=== PATIENT | male | born 1985 | race Caucasian/White ===

== ENCOUNTER 2020-08-03 07:09 | Emergency (ER) | payer BC, SELFPAY ==
--- NOTE | ~2020-08-03 | CT_ITS ---
EXAMINATION: CT abdomen pelvis wo con DATE: 08/03/2020 08:07 INDICATION: Right flank pain. TECHNIQUE: Computed tomography (CT) of the abdomen and pelvis was performed without intravenous contr ast. Automated exposure control and iterative reconstruction technique were employed. The dose-length product was 1310.89 mGy-cm. COMPARISON: None. FINDINGS: The visualized portions of the lung bases demonstrate mild atelectasis. No pleural effusion . The heart size is normal. No pericardial effusion. The liver, gallbladder, spleen, pancreas, adrena l glands, and left kidney are normal. There is a 5 mm hemorrhagic cyst in right kidney. There is mild asymmetric fat stranding in the right retroperitoneum, consistent with edema versus inflammation. Th ere is no urolithiasis. There is a left inguinal hernia containing fat. There are no dilated loops of bowel. The appendix is normal. There are no pathologically enlarged lymph nodes. There is no free in traperitoneal fluid. There is mild thoracolumbar spondylosis. IMPRESSION: 1. No urolithiasis. 2. Mild edema versus inflammation in the right retroperitoneum. 3. Left inguinal hernia containing fat. Reviewed, dictated and finalized at location [facility]
[2020-08-03 07:33] LABS: Basophils Percent Auto 0.5 % (0.2-1.2); Eosinophils Absolute Auto 0.1 K/mm3 (0-0.3); Eosinophils Percent Auto 1.1 % (0-4.4); Hematocrit 44.8 % (42.0-52.0); Hemoglobin 15.7 g/dL (14.0-18.0); Immature Granulocyte Absolute 0.01 K/mm3 (0.00-0.031); Immature Granulocyte Percent A 0.1 % (0-0.5); Lymphocytes Absolute Auto 4.16 K/mm3 (0.9-3.2); Lymphocytes Percent Auto 55.7 % (18.3-44.2); Mean Corpuscular Hemoglobin 30.2 pg (26-34); Mean Corpuscular Volume 86.2 fl (80-100); Monocytes Absolute Auto 0.6 K/mm3 (0.1-0.6); Monocytes Percent Auto 8.4 % (2.6-8.5); Neutrophils Absolute Auto 2.6 K/mm3 (1.3-6.7); Neutrophils Percent Auto 34.2 % (45.5-73.1); Platelet Count Result 192 k/mm3 (150-375); Red Cell Distribution Width 11.3 % (11.5-14.5); White Blood Count 7.5 K/mm3 (4.5-10.0)
[2020-08-03 07:34] VITALS: BP 159/87; PULSE 77; RESP 18; TEMP 35.7; O2SAT 100
[2020-08-03 07:39] LABS: Add Urine Microscopic? YES; Appearance Urine Clear (Clear); Bilirubin Urine Negative (Negative); Blood Urine 2+ (Negative); Color Urine Yellow (Yellow); Glucose Urine UA Negative (Negative); Ketones Urine Negative (Negative); Leukocyte Esterase Ur Negative LEU/UL (Negative); Mucus Urine Few /lpf; Nitrate Urine Negative (Negative); Protein Urine Negative (Negative); Squamous Epithelial Cell Urine Rare /hpf (Few); Urobilinogen Urine Negative mg/dL (<2.0); WBC Urine 0-3 /hpf
[2020-08-03 07:45] LABS: Alanine Aminotransferase 42 U/L (4-50); Albumin Level 4.4 g/dL (3.5-5.1); Alkaline Phosphatase 51 U/L (38-126); Anion Gap 10 mmol/L (8-16); Aspartate Amino Transferase 33 U/L (17-59); Bilirubin,Total 0.8 mg/dL (0.2-1.3); Blood Urea Nitrogen 19 mg/dL (9-20); Calcium 9.1 mg/dL (8.4-10.2); Carbon Dioxide 26 mmol/L (22-30); Chloride 103 mmol/L (98-107); Estimated CRCL calculation 103 ml/min; Estimated Glomerular Filt Rate > 60; Glucose 114 mg/dL (75-110); Lipase 95 U/L (23-300); Potassium 3.6 mmol/L (3.4-5.0); Sodium 139 mmol/L (137-145)
[2020-08-03 07:48] LABS: Specific Grav Ur 1.031 (1.001-1.035)
--- NOTE | 2020-08-03 07:49 | PC.NURSE ---
Pt called this RN into bathroom and states that he think passed a small stone. A small black speck was noted in toilet. Pt states he feels some relief.
[2020-08-03] MEDS: MORPHINE SULFATE (*CRX) 4 MG/ML INJ IV PUSH (07:58)
[2020-08-03] MEDS: ONDANSETRON INJ 4 MG/2 ML VIAL IV PUSH (07:59)
[2020-08-03] MEDS: SODIUM CHLORIDE 0.9% IV 1,000 ML 999 ML IV CONT (08:00)
--- NOTE | 2020-08-03 08:55 | ED.GENADULT ---
HPI - General Adult General Chief complaint: Back Pain/Injury Stated complaint: Lower Back Pain Time Seen by Provider: 08/03/20 07:35 History of Present Illness HPI narrative: Patient a 34-year-old gentleman who presents the emergency department with chief complaint of right flank pain radiating to the right inguinal area. The patient states the pain began suddenly a few hours ago and states that its not improved by anything. The patient states he is unable to get comfortable in any position does report that he has nausea with this. The patient states has not had pain like this before in the past states that has had no diarrhea denies fever denies chills. Patient denies pain worsened with bumps of the vehicle or other movement. complaint: Right flank pain Related Data Allergies Allergy/AdvReac Type Severity Reaction Status Date / Time poison shailesh extract Allergy Unknown Skin Verified 08/03/20 07:40 Reaction No Known Allergies Verified 10/25/19 15:55 Review of Systems Review of Systems: Narrative: A 10 system review of systems was completed on the patient and is negative except for what is stated in the HPI. Nursing and ancillary documentation was reviewed. 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 HEAD: Normocephalic, atraumatic. EYES: PERRLA and EOMI. ENT: Nares clear, no rhinorrhea or epistaxis. Mucous membranes moist. NECK: Supple. CHEST: Clear to auscultation. No respiratory distress. HEART: Regular rate and rhythm. No murmur heard. Normal peripheral pulses. ABDOMEN: Soft, nontender, nondistended, normal active bowel sounds. EXTREMITIES: Normal range of motion. No edema. SKIN: Warm, dry, no rash. NEURO: No focal deficits. Alert and oriented x3. PSYCH: Normal mood and affect. Course Course Emergency Course: Prior to going CAT scan the patient urinated and passed a small what appeared to be stone. Patient's pain was significantly improved afterwards CT scan showed evidence of what most likely is evidence of prior stone and he also had a hemorrhagic renal cyst. Vital Signs Vital signs: Vital Signs Temperature 35.7 C L 08/03/20 07:34 Pulse Rate 77 08/03/20 07:34 Respiratory Rate 18 08/03/20 07:34 Blood Pressure 159/87 H 08/03/20 07:34 Pulse Oximetry 100 08/03/20 07:34 Temperature 35.7 C L 08/03/20 07:34 Pulse Rate 77 08/03/20 07:34 Respiratory Rate 18 08/03/20 07:34 Blood Pressure 159/87 H 08/03/20 07:34 Pulse Oximetry 100 08/03/20 07:34 Medical Decision Making Vital Signs Vital Signs: Vital Signs Temperature 35.7 C L 08/03/20 07:34 Pulse Rate 77 08/03/20 07:34 Respiratory Rate 18 08/03/20 07:34 Blood Pressure 159/87 H 08/03/20 07:34 Pulse Oximetry 100 08/03/20 07:34 Temperature 35.7 C L 08/03/20 07:34 Pulse Rate 77 08/03/20 07:34 Respiratory Rate 18 08/03/20 07:34 Blood Pressure 159/87 H 08/03/20 07:34 Pulse Oximetry 100 08/03/20 07:34 Lab Data Result diagrams: 08/03/20 07:26 08/03/20 07:26 Labs: Lab Results 08/03/20 08/03/20 08/03/20 Range/Units 07:26 07:26 07:26 WBC 7.5 (4.5-10.0) K/mm3 RBC 5.20 (4.6-6.20) M/mm3 Hgb 15.7 (14.0-18.0) g/dL Hct 44.8 (42.0-52.0) % MCV 86.
== END 2020-08-03 09:21 | disposition home or self-care (01) ==
PROVIDERS: Emergency Provider Emergency Medicine; PCP Family Medicine
DX: N20.0 Calculus of kidney (principal); N28.1 Cyst of kidney, acquired; K40.90 Unilateral inguinal hernia, without obstruction or gangrene, not specified as recurrent
CPT/HCPCS: 36415; 74176; 80053; 81001; 83690; 85025; 96361; 96374; 96375; 99284; J2270; J2405; J7030

== ENCOUNTER → 2020-10-31 07:00 | Outpatient (CLI) | payer BC, SELFPAY ==
[2020-10-31 23:43] LABS: SARS-CoV-2 RNA PCR Negative
== END ==
PROVIDERS: PCP Family Medicine; Visit Provider Family Medicine
DX: Z20.822 Contact with and (suspected) exposure to COVID-19 (principal); R43.0 Anosmia; R43.2 Parageusia
CPT/HCPCS: C9803; U0003; U0005

== ENCOUNTER → 2020-12-22 06:55 | Outpatient (CLI) | payer BC, SELFPAY ==
[2020-12-22 19:50] LABS: SARS-CoV-2 RNA PCR Negative
== END ==
PROVIDERS: PCP Family Medicine; Visit Provider Family Medicine
DX: R11.10 Vomiting, unspecified (principal); R19.7 Diarrhea, unspecified
CPT/HCPCS: C9803; U0003; U0005

== ENCOUNTER → 2021-07-03 08:42 | Outpatient (CLI) | payer BC, SELFPAY ==
[2021-07-04 02:05] LABS: SARS-CoV-2 RNA PCR Positive
== END ==
PROVIDERS: PCP Family Medicine; Visit Provider Family Medicine
DX: U07.1 COVID-19 (principal)
CPT/HCPCS: C9803; U0003; U0005

== ENCOUNTER → 2021-09-14 03:33 | Outpatient (CLI) | payer BC, SELFPAY ==
[2021-09-14 11:18] LABS: SARS-CoV-2 RNA PCR Negative
== END ==
PROVIDERS: PCP Family Medicine; Visit Provider Family Medicine
DX: J02.9 Acute pharyngitis, unspecified (principal); R05.9 Cough, unspecified; Z20.822 Contact with and (suspected) exposure to COVID-19
CPT/HCPCS: C9803; U0003; U0005

== ENCOUNTER 2022-03-21 12:00 | Emergency (ER) | payer BC, SELFPAY ==
[2022-03-21] VITALS (17 sets, daily range): BP systolic 131–142; BP diastolic 75–81; PULSE 74–100; RESP 14–22; TEMP 37.1; O2SAT 90–99
--- NOTE | ~2022-03-21 | XR_ITS ---
EXAMINATION: XR chest 2V DATE: 03/21/2022 12:59 INDICATION: Left chest pain. TECHNIQUE: Frontal and lateral views of the chest were obtained. COMPARISON: Chest 2 views 10/07/2003, CT abdomen and pelvis 08/03/2020 FINDINGS: The chest demonstrates clear lungs without pneumonia, pleural effusion, or pneumothorax. Th e heart size is normal. There is mild chronic anterior wedging of a midthoracic vertebral body. IMPRESSION: 1. No acute cardiopulmonary disease. Reviewed, dictated and finalized at location A.
--- NOTE | 2022-03-21 12:08 | ECG_ITS ---
Measurements Intervals Alexander Rate: 78 P: 21 NM: 137 QRS: 15 QRSD: 97 T: 7 QT: 374 QTc: 429 Interpretive Statements SINUS RHYTHM BORDERLINE T WAVE ABNORMALITY- INFERIOR LEADS BASELINE WANDER- V5 BORDERLINE ECG NO PREVIOUS ECG AVAILABLE FOR COMPARISON Electronically Signed On 03-21-2022 12:21:17 CDT by Franklni Traylor D.O.
[2022-03-21 12:48] LABS: Basophils Percent Auto 0.5 % (0.2-1.2); Eosinophils Percent Auto 0.7 % (0-4.4); Hematocrit 43.4 % (42.0-52.0); Hemoglobin 15.1 g/dL (14.0-18.0); Immature Granulocyte Absolute 0.01 K/mm3 (0.00-0.031); Immature Granulocyte Percent A 0.2 % (0-0.5); Lymphocytes Absolute Auto 1.63 K/mm3 (0.9-3.2); Lymphocytes Percent Auto 29.2 % (18.3-44.2); Mean Corpuscular HGB Conc 34.8 g/dl (32-36); Mean Corpuscular Hemoglobin 30.7 pg (26-34); Mean Corpuscular Volume 88.2 fl (80-100); Mean Platelet Volume 10.1 fl (7.4-10.4); Monocytes Absolute Auto 0.4 K/mm3 (0.1-0.6); Monocytes Percent Auto 6.8 % (2.6-8.5); Neutrophils Absolute Auto 3.5 K/mm3 (1.3-6.7); Neutrophils Percent Auto 62.6 % (45.5-73.1); Platelet Count Result 192 k/mm3 (150-375); Red Blood Count 4.92 M/mm3 (4.6-6.20); Red Cell Distribution Width 11.8 % (11.5-14.5); White Blood Count 5.6 K/mm3 (4.5-10.0)
[2022-03-21 12:57] LABS: Alanine Aminotransferase 77 U/L (6-50); Albumin Level 4.4 g/dL (3.5-5.1); Alkaline Phosphatase 49 U/L (38-126); Anion Gap 10 mmol/L (8-16); Aspartate Amino Transferase 38 U/L (17-59); Bilirubin,Total 0.5 mg/dL (0.2-1.3); Blood Urea Nitrogen 17 mg/dL (9-20); Calcium 9.4 mg/dL (8.4-10.2); Carbon Dioxide 24 mmol/L (22-30); Chloride 104 mmol/L (98-107); Estimated CRCL calculation 110 ml/min; Estimated Glomerular Filt Rate > 60; Glucose 119 mg/dL (65-110); INR 0.9; Lipase 59 U/L (23-300); Potassium 4.6 mmol/L (3.4-5.0); Prothrombin Time 12.1 Seconds (11.1-14.7); Sodium 138 mmol/L (137-145)
[2022-03-21 12:58] LABS: Partial Thromboplastin Time 28.6 SECONDS (22.3-36.8)
[2022-03-21 13:08] LABS: Troponin I < 0.012 ng/mL (0.000-0.034)
--- NOTE | 2022-03-21 15:22 | ED.CHESTPAIN ---
HPI - Chest Pain General Chief Complaint: Chest Pain Stated Complaint: chest pain Time Seen by Provider: 03/21/22 12:18 Source: patient Mode of arrival: ambulatory Limitations: no limitations History of Present Illness HPI narrative: 36 years old white male woke up at 6 AM with pain at the left upper chest left upper back radiating to left upper extremity. The pain like aching, will intermittent numbness left upper extremity. Patient denies any fever, chills, nausea, vomiting, headache, neck pain, trauma, having similar symptoms. 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 Patient does not take medicine, no family history of coronary artery disease. 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 COVID-19 Eosinophilic esophagitis due to food Family History Family History Father Family history of thyroid disease Diabetes mellitus Family history of hypercholesterolemia Mother Diabetes mellitus Family history of hypercholesterolemia Hypertension Family history of alcoholism Sibling Family history of migraine headaches Social History Social History Smoking status: Never smoker Substance use type: marijuana Exam Narrative: General appearance: Well-developed, well-nourished Skin: Normal color Head: Normocephalic, nontraumatic Eyes: Clear conjunctiva ENT: Oropharynx normal, ears normal, nose normal Neck: Supple, nontender Chest and respiratory: Airway patent, no respiratory distress, no accessory muscle use Heart: Regular rate/rhythm Abdomen: Soft, nontender, no organomegaly, quiet bowel sounds Vascular: Normal peripheral pulses, normal capillary refill. Musculoskeletal: Left shoulder and left upper back pain with left upper extremity movement. No bruises, no swelling or rash. Neurologic: Alert and oriented ?3, [employer] is normal as tested, no gross motor deficit Course Course Emergency Course: Work-up today showed no significant finding to explain patient condition. My concern is musculoskeletal, cervical radiculopathy less likely, coronary artery disease is extremely less likely. I plan to discharge patient on anti-inflammatory and muscle relaxant and see how it goes. Vital Signs Vital signs: Vital Signs Temperature 37.1 C 03/21/22 12:34 Pulse Rate 90 03/21/22 12:34 Respiratory Rate 14 03/21/22 12:34 Blood Pressure 142/81 H 03/21/22 12:34 Pulse Oximetry 97 03/21/22 12:34 Oxygen Delivery Room Air 03/21/22 12:34 Temperature 37.1 C 03/21/22 12:34 Pulse Rate 95 03/21/22 14:30 Respiratory Rate 19 03/21/22 14:30 Blood Pressure 131/81 03/21/22 12:46 Pulse Oximetry 94 03/21/22 14:30 Oxygen Delivery Room Air 03/21/22 12:45 MDM - Chest Pain Differential Diagnosis Differential diagnosis: Likely pneumothorax, atypical chest pain and chest pain Lab Data Result diagrams: 03/21/22 12:39 03/21/22 12:39 Labs: Lab Results 03/21/22 03/21/22 03/21/22 Range/Units 12:39 12:39 12:39 WBC 5.6 (4.5-10.0) K/mm3 RBC 4.92 (4.6-6.20) M/mm3 Hgb
--- NOTE | 2022-03-21 15:23 | PC.NURSE ---
Dr. antonio at bedside to update patient on plan of care.
[2022-03-21 15:45] LABS: Troponin I < 0.012 ng/mL (0.000-0.034)
== END 2022-03-21 15:58 | disposition home or self-care (01) ==
PROVIDERS: Emergency Medicine; Emergency Provider Emergency Medicine; PCP Family Medicine
DX: R07.89 Other chest pain (principal); Z86.16 Personal history of COVID-19; R94.31 Abnormal electrocardiogram [ECG] [EKG]
CPT/HCPCS: 36415; 71046; 80053; 83690; 84484; 85025; 85610; 85730; 93005; 99284

== ENCOUNTER 2022-07-31 11:34 | Outpatient (CLI) | payer BC, SELFPAY ==
[2022-07-31 20:10] LABS: Alanine Aminotransferase 41 U/L (6-50); Albumin Level 4.3 g/dL (3.5-5.1); Alkaline Phosphatase 45 U/L (38-126); Aspartate Amino Transferase 32 U/L (17-59); Bilirubin,Total 0.4 mg/dL (0.2-1.3)
== END 2022-07-31 11:35 | disposition home or self-care (01) ==
LOC: ANHGOSHLAB 11:36
PROVIDERS: PCP Family Medicine; Visit Provider Physician Assistant
DX: R74.8 Abnormal levels of other serum enzymes (principal)
CPT/HCPCS: 36415; 80076